=== PATIENT | female | born 1960 | race Asian ===

== ENCOUNTER 2023-06-11 07:36 | Day surgery (SDC) | payer OTHER, MEDICAID ==
[~2023-06-11] VITALS: Ht 162.6 cm; Wt 56.0 kg
[~2023-06-11 07:36] MED LIST: MEPERIDINE 100 MG INJ. 100 MG/ML VIAL ONE; MIDAZOLAM HCL 5 MG/5 ML VIAL ONE
[2023-06-11 14:51] VITALS: O2SAT 98
[2023-06-11 16:07] VITALS: BP_SYST 98; PULSE 69; RESP 16
== END 2023-06-11 15:45 | disposition home or self-care (01) ==
LOC: SDS 07:36 → SMU 07:37 → SDS 15:45
PROVIDERS: ATTEND Internal Medicine Gastroenterology
DX: Z12.11 Encounter for screening for malignant neoplasm of colon (principal); K64.8 Other hemorrhoids; Z98.891 History of uterine scar from previous surgery; Z90.89 Acquired absence of other organs; Z86.010 Personal history of colon polyps
CPT/HCPCS: 99152; 45378; G0378; J2250; J2175